=== PATIENT | male | born 1990 | race Caucasian/White ===

== ENCOUNTER 2020-03-02 16:41 | Emergency (ER) | payer BC, OTHER ==
[~2020-03-02] VITALS: Ht 177.8 cm; Wt 66.3 kg
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
--- NOTE | 2020-03-02 17:23 | NUR ---
PT TRANSPORTED TO [facility].
--- NOTE | 2020-03-02 17:23 | NUR ---
Christie kumari in [facility] - 03/02/20 at 1723 by CYNDY PT TRANSPORTED TO [facility].
[2020-03-02] MEDS ORDERED: MAALOX/HYOSCYAMINE/LIDOCAINE 45 ML BTL ONE (17:27)
[2020-03-02] MEDS ORDERED: ACETAMINOPHEN 500 MG TABLET ONE (17:27)
[2020-03-02] MEDS ORDERED: MAALOX/HYOSCYAMINE/LIDOCAINE 45 ML BTL PO ONE (17:30)
[2020-03-02] MEDS ORDERED: ACETAMINOPHEN 500 MG TABLET PO ONE (17:30)
[2020-03-02 17:56] LABS: ALBUMIN 4.2 g/dL (3.4-5.0); ANION GAP 6 mmol/L (5-15); CALCIUM 8.9 mg/dL (8.5-10.1); CHLORIDE 107 mmol/L (98-107)
[2020-03-02 17:59] LABS: ALANINE AMINOTRANSFERASE 37 U/L (12-78); ALKALINE PHOSPHATASE 99 U/L (45-117); BILIRUBIN,TOTAL 0.9 mg/dL (0.2-1.0); CREATININE 0.91 mg/dL (0.7-1.3); TOTAL PROTEIN 7.7 g/dL (6.4-8.2)
[2020-03-02 18:00] LABS: BASOPHILS # (AUTO) 0.03 x10^3/uL (0-0.1); BASOPHILS % (AUTO) 1 % (0-1); EOSINOPHILS # (AUTO) 0.03 x10^3/uL (0-0.4); EOSINOPHILS % (AUTO) 1 % (1-7); LYMPHOCYTES % (AUTO) 35 % (22-44); MD NO; MEAN CORPUSCULAR HEMOGLOBIN 29.1 pg (27.5-34.5); MEAN CORPUSCULAR VOLUME 88.2 fL (81-97); MONOCYTES # (AUTO) 0.41 x10^3/uL (0.2-0.8); MONOCYTES % (AUTO) 6 % (2-9); NEUTROPHILS # (AUTO) 3.72 x10^3/uL (1.8-6.8); NEUTROPHILS % (AUTO) 58 % (42-75); PLATELET COUNT 250 x10^3/uL (130-400); RED BLOOD COUNT 5.72 x10^6/uL (4.38-5.82); RED CELL DISTRIBUTION WIDTH 12.6 % (9.4-14.8)
[2020-03-02 18:28] VITALS: BP 120/71
== END 2020-03-02 18:48 | disposition home or self-care (01) ==
LOC: ED 18:30
DX: S06.0X0A Concussion without loss of consciousness, initial encounter (principal); K29.00 Acute gastritis without bleeding; R10.13 Epigastric pain; R07.89 Other chest pain; R11.2 Nausea with vomiting, unspecified; I44.4 Left anterior fascicular block; X58.XXXA Exposure to other specified factors, initial encounter; Y93.89 Activity, other specified; Y92.89 Other specified places as the place of occurrence of the external cause; Y99.8 Other external cause status
CPT/HCPCS: 36415; 70450; 71046; 80053; 83690; 85025; 93005; 99285

== ENCOUNTER 2020-03-09 21:41 | Emergency (ER) | payer OTHER ==
[~2020-03-09] VITALS: Ht 177.8 cm; Wt 68.0 kg
[2020-03-09] MEDS ORDERED: HYDROcodone/APAP 5/325 TABLET ONE (22:01)
[2020-03-09 22:21] VITALS: BP 136/88
[2020-03-09] MEDS ORDERED: HYDROcodone/APAP 5/325 TABLET PO ONE (22:30)
== END 2020-03-09 22:27 | disposition home or self-care (01) ==
LOC: ED 22:00
DX: K02.9 Dental caries, unspecified (principal)
CPT/HCPCS: 99283

== ENCOUNTER 2020-04-01 21:23 | Emergency (ER) | payer OTHER ==
[~2020-04-01] VITALS: Ht 177.8 cm; Wt 72.5 kg
[2020-04-01 21:25] VITALS: BP 142/86
== END 2020-04-01 21:55 | disposition home or self-care (01) ==
LOC: ED 21:53
DX: K08.89 Other specified disorders of teeth and supporting structures (principal)
CPT/HCPCS: 99283

== ENCOUNTER 2020-04-29 22:04 | Emergency (ER) | payer OTHER ==
[~2020-04-29] VITALS: Ht 177.8 cm; Wt 70.0 kg
--- NOTE | 2020-04-29 22:37 | NUR ---
PATIENT WALKED BACK FROM LOBBY WITH CHIEF C/O RIGHT SIDED JAW PAIN AND CHEST PAIN. PATIENT HAD ORAL SURGERY ON 04/14/2020. PATIENT STATES HE HAS BEEN HAVING HEADACHES X1 WEEK, JAW AND NECK PAIN. PAIN WAS SO SEVERE AT ONE POINT PATIENT VOMITTED. PATIENT STATES HE IS HAVING CHEST PAIN RIGHT NOW AND IT FEELS LIKE "SOMEONE IS SITTING ON MY CHEST." PATIENT DENIES FEVER. NO SIGNS OF ACUTE DISTRESS, CALL LIGHT WITHIN REACH.
[2020-04-29 23:21] VITALS: BP 136/72
--- NOTE | 2020-04-29 23:31 | NUR ---
PATIENT SITTING IN GURNEY, NO SIGNS OF ACUTE DISTRESS, CALL LIGHT WITHIN REACH, NO FURTHER NEEDS AT THIS TIME.
== END 2020-04-30 00:11 | disposition home or self-care (01) ==
LOC: ED 23:44
DX: R07.89 Other chest pain (principal); R94.31 Abnormal electrocardiogram [ECG] [EKG]
CPT/HCPCS: 71046; 93005; 99283